=== PATIENT | female | born 1980 | race Caucasian/White ===

== ENCOUNTER 2016-05-03 16:48 | Emergency (ER) | payer OTHER ==
[2016-05-03 16:37] LABS: INFLUENZA A NEG (NEG); INFLUENZA B NEG (NEG)
[~2016-05-03 16:48] MED LIST: AMOXICILLIN PO; ANTI-ITCH28 GM TP; ANXIETY MEDS; AUGMENTIN PO; BENTYL20 MG PO; DICLOFENAC PO; DOXEPIN HCL75 MG; DOXYCYCLINE PO; EFFEXOR; FLEXERIL PO; FLEXERIL10 MG PO; HYDROCODONE-APAP5 ML PO; IBUPROFEN; IBUPROFEN PO; IBUPROFEN800 MG PO; KEFLEX500 MG PO; KLONOPIN1 MG PO; LORTAB 10-5001 EACH PO; LORTAB 101 TAB 10/5; LORTAB 101 TAB 10/5 PO; LORTAB 5/500 TA1 TA1 PO; LORTAB 7.5-5001 TAB PO; MEDROL4 MG/DOSE- PO; METRONIDAZOLE PO; MIRALAX255 GM PO; NEURONTIN; NO MEDICATIONS; OXYCODON HCL-1 UDTAB PO; PERCOCET5/325 PO; PHENERGAN PO; PHENERGAN12.5 MG PO; ROBAXIN500 MG PO; TYLENOL #3 PO; VICODIN PO; VOLTAREN75 MG PO; ZANAFLEX; ZITHROMAX1 G/PKT PO; ZOFRAN SL
[2016-05-03 17:14] LABS: URINE APPEARANCE CLEAR; URINE BILIRUBIN NEG (NEG); URINE BLOOD NEG (NEG); URINE COLOR YELLOW; URINE GLUCOSE NEG (NORM); URINE KETONE NEG (NEG); URINE LEUKOCYTE ESTERASE NEG (NEG); URINE NITRATE NEG (NEG); URINE PH 7.5 (5-8); URINE SOURCE CLEAN CATCH; URINE UROBILINOGEN 0.2 MG/DL (NORM)
[2016-05-03 17:16] LABS: MICRO INDICATED? NO; URINE PROTEIN NEG (NEG)
== END 2016-05-03 18:15 | disposition home or self-care (01) ==
LOC: SED 16:48
PROVIDERS: Emergency Medicine
DX: B34.9 Viral infection, unspecified (principal); K52.9 Noninfective gastroenteritis and colitis, unspecified; Z86.19 Personal history of other infectious and parasitic diseases; Z90.710 Acquired absence of both cervix and uterus; Z98.890 Other specified postprocedural states
CPT/HCPCS: 36415; 81003; 87804; 96361; 96374; 96375; 99284; J1885; J2405